=== PATIENT | female | born 1985 | race Caucasian/White ===

== ENCOUNTER 2019-12-17 20:39 | Emergency (ER) | payer OTHER ==
[~2019-12-17] VITALS: Ht 172.7 cm; Wt 117.9 kg
[~2019-12-17 20:39] MED LIST: AZIT250 PO; CEPH500 PO; CODGUAEL PO; Esgic Tablet1 EACH PO; Flagyl500 MG PO; IBUP800 PO; OXYACE5T PO; PROM25 PO; Percocet 5-3251 EACH PO; Verotin-Gr Cap1 EACH PO; Zofran Odt4 MG SL; Zofran8 MG PO
[2019-12-17 21:05] LABS: BASOPHILS ABSOLUTE AUTO 0.09 K/mm3 (0.00-0.23); BASOPHILS PERCENT AUTO 1 % (0-2); EOSINOPHILS ABSOLUTE AUTO 0.28 K/mm3 (0.00-0.68); EOSINOPHILS PERCENT AUTO 3 % (0-6); Hematocrit 41.6 % (33.0-51.0); Hemoglobin 13.8 g/dL (11.5-16.0); IMMATURE GRAN ABSOLUTE AUTO 0.03 K/mm3 (0.00-0.10); IMMATURE GRAN PERCENT AUTO 0 % (0-1); LYMPHOCYTES ABSOLUTE AUTO 3.54 K/mm3 (0.84-5.20); LYMPHOCYTES PERCENT AUTO 35 % (21-46); MONOCYTES ABSOLUTE AUTO 0.54 K/mm3 (0.16-1.47); MONOCYTES PERCENT AUTO 5 % (4-13); Mean Corpuscular HGB 29.2 pg (26.0-34.0); Mean Corpuscular HGB Conc 33.2 g/dL (31.5-36.5); Mean Corpuscular Volume 88 fL (80-100); NEUTROPHILS ABSOLUTE AUTO 5.71 K/mm3 (1.96-9.15); NEUTROPHILS PERCENT AUTO 56 % (41-73); Platelet Count 262 K/mm3 (150-400); RDW Coefficient Variation 12.7 % (11.7-14.2); RDW Standard Deviation 41.1 fL (35.1-46.3); Red Blood Cell Count 4.72 M/mm3 (3.80-5.20); White Blood Cell Count 10.19 K/mm3 (4.00-11.30)
[2019-12-17 21:23] LABS: Albumin, Blood 3.2 g/dL (3.4-5.0); Albumin/Globulin Ratio 0.9 (0.8-1.8); Bilirubin, Total 0.2 mg/dL (0.1-1.0); Bun/Creatinine Ratio 12.5 (12.0-20.0); Calcium, Blood 8.3 mg/dL (8.5-10.1); Creatinine, Blood 1.2 mg/dL (0.40-1.00); Globulin, Blood 3.6 g/dL (2.2-4.0); Potassium, Blood 3.8 mmol/L (3.5-5.5); Total Protein, Blood 6.8 g/dL (6.4-8.2)
[2019-12-17 22:01] LABS: Source, Urine Clean Catch
[2019-12-17 22:09] LABS: Blood, Urine 5+ (Neg); Glucose Qualitative, Urine Neg (Neg); Ketones, Urine Neg (Neg); Leukocyte Esterase, Urine 1+ (Neg); Nitrite, Urine Pos (Neg); Protein, Urine 4+ (Neg); Urobilinogen, Urine 3+ (Normal); pH, Urine 6.5 (5.0-8.0)
[2019-12-17] MEDS ORDERED: OXYC5 (22:13)
[2019-12-17] MEDS ORDERED: BUPROPION XL150 M1 PO (22:14)
[2019-12-17] MEDS ORDERED: Pyridium200 MG (22:14)
[2019-12-17] MEDS ORDERED: AMLODIPINE BESY10 MG PO (22:14)
[2019-12-17] MEDS ORDERED: CYCL10 (22:15)
[2019-12-17] MEDS ORDERED: DULOXETINE HCL60 M1 PO (22:15)
[2019-12-17] MEDS ORDERED: IMITREX100 MG PO (22:15)
[2019-12-17] MEDS ORDERED: TRAZ50 PO (22:15)
[2019-12-17] MEDS ORDERED: Buspirone HCl30 MG PO (22:15)
[2019-12-17 22:16] LABS: Appearance, Urine Turbid (Clear); Bilirubin, Urine 3+ (Neg); Color, Urine Orange (P-Yellow)
[2019-12-17 22:18] LABS: Bacteria Few /hpf; Red Blood Cells, Urine TNTC /hpf (0-2); Squamous Epithelial Cells Not Seen /hpf (Few); White Blood Cells, Urine 0-2 /hpf (0-5)
[2019-12-18] MEDS ORDERED: IBUP800 PO (00:20)
[2019-12-18] MEDS ORDERED: Magnesium Citr296 ML PO (00:20)
== END 2019-12-18 00:33 | disposition home or self-care (01) ==
LOC: ER 20:39
PROVIDERS: Emergency Medicine
DX: R10.32 Left lower quadrant pain (principal); Z79.899 Other long term (current) drug therapy; I10 Essential (primary) hypertension; F41.9 Anxiety disorder, unspecified; F32.9 Major depressive disorder, single episode, unspecified; Z87.891 Personal history of nicotine dependence
CPT/HCPCS: 36415; 74176; 80053; 81001; 81025; 83690; 85025; 87086; 96374; 96375; 96376; 99284-25; J1885; J2270; J2405